=== PATIENT | female | born 1995 | race Caucasian/White ===

== ENCOUNTER 2017-06-21 11:36 | Outpatient (CLI) | payer OTHER, BC ==
[2015-05-23] VITALS: O2SAT 97
== END 2017-06-21 11:37 | disposition home or self-care (01) | DRG 556 ==
LOC: CONVCARE 11:36
PROVIDERS: ATTEND Orthopaedic Surgery
DX: M25.531 Pain in right wrist (principal); M25.431 Effusion, right wrist; S69.91XD Unspecified injury of right wrist, hand and finger(s), subsequent encounter; R58 Hemorrhage, not elsewhere classified
CPT/HCPCS: 73090; 73110

== ENCOUNTER 2017-08-02 11:35 | Outpatient (CLI) | payer OTHER, BC ==
[2015-05-23] VITALS: O2SAT 97
== END 2017-08-02 11:36 | disposition home or self-care (01) | DRG 561 ==
LOC: CONVCARE 11:35
PROVIDERS: ATTEND Orthopaedic Surgery
DX: S52.501D Unspecified fracture of the lower end of right radius, subsequent encounter for closed fracture with routine healing (principal)
CPT/HCPCS: 73110

== ENCOUNTER 2017-08-30 09:12 | Outpatient (CLI) | payer OTHER, BC ==
[2015-05-23] VITALS: O2SAT 97
== END 2017-08-30 09:13 | disposition home or self-care (01) | DRG 561 ==
LOC: CONVCARE 09:12
PROVIDERS: ATTEND Orthopaedic Surgery
DX: S52.501D Unspecified fracture of the lower end of right radius, subsequent encounter for closed fracture with routine healing (principal)
CPT/HCPCS: 73110